=== PATIENT | male | born 1980 ===

== ENCOUNTER 2018-07-23 01:49 | Emergency (ER) | payer MEDICAID ==
[~2018-07-23] VITALS: Ht 182.9 cm; Wt 70.0 kg
[2018-07-23] MEDS ORDERED: SODIUM CHLORIDE 0.9% 1,000ML IVBOLUS ONE (02:00)
--- NOTE | 2018-07-23 02:00 | NUR ---
PT BIB [place] AFTER BEING FOUND UNRESPONSIVE AT [facility]. PT FOUND HYPOXIC AT 41% RA AND CYANOTIC LIPS. PT GIVEN NARCAN ON SCENE AND IMMEDIATELY TURNED AROUND. PT ADMITS TO USING HEROIN, METHAMPHETAMINE, ALCOHOL, MARIJUANA, AND TWO "STRIPPERS" TONIGHT. PT ANXIOUS UPON ARRIVAL TO [facility] ED. PT VSS. PT IN GOWN. PT HAS IV ACCESS ESTABLISHED BY JESS. PT HAS CALL LIGHT WITHIN REACH. AWAITING NEW ORDERS AT THIS TIME.
[2018-07-23 02:48] LABS: BASOPHILS % (AUTO) 0 % (0-1); EOSINOPHILS # (AUTO) 0.06 x10^3/uL (0-0.4); EOSINOPHILS % (AUTO) 1 % (1-7); LYMPHOCYTES # (AUTO) 0.98 x10^3/uL (1-3.4); LYMPHOCYTES % (AUTO) 12 % (22-44); MD NO; MEAN CORPUSCULAR HGB CONC 34.2 g/dL (33.2-36.2); MEAN CORPUSCULAR VOLUME 93.4 fL (81-97); MONOCYTES # (AUTO) 0.64 x10^3/uL (0.2-0.8); MONOCYTES % (AUTO) 8 % (2-9); NEUTROPHILS # (AUTO) 6.27 x10^3/uL (1.8-6.8); NEUTROPHILS % (AUTO) 79 % (42-75); PLATELET COUNT 221 x10^3/uL (130-400); RED BLOOD COUNT 4.88 x10^6/uL (4.38-5.82); RED CELL DISTRIBUTION WIDTH 13.1 % (9.4-14.8)
[2018-07-23 02:56] LABS: ALANINE AMINOTRANSFERASE 103 U/L (12-78); ALBUMIN 4.1 g/dL (3.4-5.0); ANION GAP 8 mmol/L (5-15); CALCIUM 8.6 mg/dL (8.5-10.1); CHLORIDE 112 mmol/L (98-107); CREATININE 1.38 mg/dL (0.7-1.3)
[2018-07-23 02:58] LABS: ALKALINE PHOSPHATASE 37 U/L (45-117); BILIRUBIN,TOTAL 2.4 mg/dL (0.2-1.0); TOTAL PROTEIN 7.1 g/dL (6.4-8.2)
--- NOTE | 2018-07-23 04:07 | NUR ---
PT AWAKE AND SPEAKING INCOHERENT IDEAS. LILI HALL AT BS FOR PT ASSESSMENT. VSS AT THIS TIME.
[2018-07-23 05:52] VITALS: BP 139/85
--- NOTE | 2018-07-23 05:54 | NUR ---
PT AMBULATES WITH STEADY GAIT. PT VSS AND UPDATED IN EMR. PT AAO X 3, STILL UNAWARE OF SITUATION. DR YANG NOTIFIED TO ASSESS PT TO CLEAR FOR D/C.
--- NOTE | 2018-07-23 06:05 | NUR ---
PT D/C WITH D/C SUMMARY. ALL QUESTIONS ANSWERED. PT AMBULATES TO REGISTRATION DESK WITH STEADY GAIT. PT CALLED FRIEND FOR RIDE FOR D/C HOME.
== END 2018-07-23 06:07 ==
LOC: ED 01:56
DX: T43.621A Poisoning by amphetamines, accidental (unintentional), initial encounter (principal); F17.210 Nicotine dependence, cigarettes, uncomplicated; F15.129 Other stimulant abuse with intoxication, unspecified; F11.129 Opioid abuse with intoxication, unspecified; R41.82 Altered mental status, unspecified; Y92.9 Unspecified place or not applicable
CPT/HCPCS: 36415; 80053; 85025; 93005; 96360; 99284; J7030

== ENCOUNTER 2018-09-16 12:31 | Emergency (ER) | payer MEDICAID ==
[~2018-09-16] VITALS: Ht 185.4 cm; Wt 71.0 kg
[2018-09-16 12:38] VITALS: BP 108/88
--- NOTE | 2018-09-16 12:50 | NUR ---
FIRST CONTACT WITH PT. PT STATES "I HAVE AN ABSCESS ON MY TOOTH IN THE UPPER. I JUST NEED ANTIBIOTICS." PT'S AOX4. RESPS EVEN AND UNLABORED. AWAITING ORDERS.
[2018-09-16] MEDS ORDERED: HYDROcodone/APAP 5/325 TABLET ONE (13:10)
--- NOTE | 2018-09-16 13:12 | NUR ---
PT MEDICATED PER EMAR. PT TOLERATED WELL.
--- NOTE | 2018-09-16 13:22 | NUR ---
Patient given discharge instructions and they have confirmed that they understand the instructions. Patient ambulatory with steady gait.
[2018-09-16] MEDS ORDERED: HYDROcodone/APAP 5/325 TABLET PO ONE (13:30)
== END 2018-09-16 13:23 | disposition home or self-care (01) ==
LOC: ED 13:17
DX: K08.89 Other specified disorders of teeth and supporting structures (principal)
CPT/HCPCS: 99283